=== PATIENT | female | born 1950 | race Caucasian/White ===

== ENCOUNTER → 2022-08-16 08:07 | Outpatient (CLI) | payer MEDICARE, SELFPAY ==
[2022-08-16 10:02] LABS: Influenza A - CEPHEID Flu A NEGATIVE (NEGATIVE); Influenza B - CEPHEID Flu B NEGATIVE (NEGATIVE); Respiratory Syncytial Virus Negative (Negative)
[2022-08-16 10:04] LABS: COVID-19 CEPHEID PCR (VTM/NP) Negative (Negative)
== END ==
PROVIDERS: Visit Provider Registered Nurse
DX: R05.9 Cough, unspecified (principal); R09.81 Nasal congestion
CPT/HCPCS: 0241U

== ENCOUNTER → 2022-12-26 09:21 | Outpatient (CLI) | payer OTHER, MEDICARE, SELFPAY ==
--- NOTE | 2022-12-26 | DI.RAD.S_ITS ---
PROCEDURE: XR CHEST 2V INDICATIONS: COUGH TECHNIQUE: 2 views of the chest were acquired. COMPARISON: None. FINDINGS: Surgical changes and devices: None. Lungs and pleura: No consolidation. No pleural effusions or pneumothorax. Mediastinum: Mediastinal contours are normal. Heart size is normal. Bones and chest wall: No suspicious bony abnormalities. Soft tissues appear unremarkable. IMPRESSION: No acute cardiopulmonary abnormality identified. Dictated by: Dustin Haddad M.D. on 12/26/2022 at 9:57 Approved by: Dustin Haddad M.D. on 12/26/2022 at 9:58
== END ==
PROVIDERS: PCP Physician Assistant; Referring Provider Physician Assistant; Visit Provider Physician Assistant
DX: R05.9 Cough, unspecified (principal)
CPT/HCPCS: 71046

== ENCOUNTER 2024-08-15 13:29 | Emergency (ER) | payer OTHER, SELFPAY ==
[2024-08-15] VITALS (13 sets, daily range): BP systolic 97–152; BP diastolic 64–85; PULSE 76–95; RESP 14–18; TEMP 36.8; O2SAT 97–99; BMI 30.7
--- NOTE | 2024-08-15 13:35 | DI.RAD.S_ITS ---
PROCEDURE: XR HIP W PEL IF DONE LT 2V INDICATIONS: fall TECHNIQUE: 2 views of the hip were acquired. COMPARISON: None. FINDINGS: Bones: No fractures or dislocations. No suspicious bony lesions. The visualized pelvic ring appears intact. Mild joint space narrowing. Femoral head maintains an appropriate contour Soft tissues: No suspicious soft tissue calcifications or masses. IMPRESSION: Mild bilateral hip osteoarthritis. No fracture. Approved by: Abelardo Jose M.D. on 08/15/2024 at 14:21
--- NOTE | 2024-08-15 13:35 | DI.CT.S_ITS ---
PROCEDURE: CT HEAD/BRAIN WO CON INDICATIONS: fall TECHNIQUE: Noncontrast 4.5 mm thick angled axial sections acquired from the foramen magnum to the vertex, with coronal and sagittal reformats. For radiation dose reduction, the following was used: automated exposure control, adjustment of mA and/or kV according to patient size. COMPARISON: None. FINDINGS: Image quality: Diagnostic. CSF spaces: Basal cisterns are patent. No extra-axial fluid collections. The ventricles are symmetric in size and shape. Brain: No intracranial bleeds or masses. There is cerebral volume loss for age, with resultant ventricular and sulcal prominence. There are periventricular and deep white matter chronic small vessel ischemic changes. There is intracranial internal carotid artery atherosclerosis. Skull and face: Calvarium and visualized facial bones appear intact, without suspicious lesions. Sinuses: Visualized sinuses and mastoids are clear. IMPRESSION: No acute intracranial pathology. Dictated by: Veto Buitrago M.D. on 08/15/2024 at 14:18 Approved by: Veto Buitrago M.D. on 08/15/2024 at 14:19
--- NOTE | 2024-08-15 13:35 | DI.RAD.S_ITS ---
PROCEDURE: XR SHOULDER LT MIN 2V INDICATIONS: fall TECHNIQUE: 3 views of the shoulder were acquired. COMPARISON: None. FINDINGS: Bones: Generalized decreased osseous mineralization noted. Comminuted proximal humeral fracture is nondisplaced. No dislocation Soft tissues: No suspicious soft tissue calcifications. IMPRESSION: Nondisplaced comminuted proximal humeral fracture Approved by: Abelardo Jose M.D. on 08/15/2024 at 14:26
--- NOTE | 2024-08-15 13:35 | DI.RAD.S_ITS ---
PROCEDURE: XR KNEE RT 3V INDICATIONS: fall TECHNIQUE: 3 views of the knee were acquired. COMPARISON: None. FINDINGS: Bones: No fractures or dislocations. No suspicious bony lesions. Moderate medial compartment and patellofemoral joint space narrowing. No joint effusion. Generalized decreased osseous mineralization noted. Soft tissues: No joint effusion. No suspicious soft tissue calcifications. IMPRESSION: Predominantly medial compartment osteoarthritis. No fracture or joint effusion. Approved by: Abelardo Jose M.D. on 08/15/2024 at 14:23
[2024-08-15] MEDS: ACETAMINOPHEN 325 MG TABLET 650 MG PO (15:30)
--- NOTE | 2024-08-15 16:50 | ED_ITS ---
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 She feels she was a little woozy does not completely remember the incident. She was helped off the ground onto a stretcher by the medics. She states she has been in her usual state of health and takes minimal medications prior to the fall. Related Data Home Medications Medication Instructions Recorded Confirmed furosemide [Lasix] PO 08/16/22 08/16/22 oxybutynin chloride PO 08/16/22 08/16/22 potassium citrate PO 08/16/22 08/16/22 Previous Rx's Medication Instructions Recorded hydrocodone 5 mg-acetaminophen 325 1 tab PO Q6-8H PRN pain #14 tabs 08/15/24 mg tablet Allergies Allergy/AdvReac Type Severity Reaction Status Date / Time Penicillins Allergy Mild Rash Verified 08/16/22 07:59 Review of Systems Review of Systems Narrative: Pertinent positive and negative findings as per HPI Patient History Social History Smoking Status: Never smoker Smoking Status: Never smoker Substance Use Type: does not use and marijuana Exam Initial Vital Signs Initial Vital Signs: Vital Signs Blood Pressure 152/85 H 08/15/24 13:33 General: Healthy appearing, minor contusion to the left forehead, GCS of 15 HEENT: Moist mucous membranes, normal sclera with reactive pupils, Neck: No midline tenderness to palpation Respiratory: Lungs are clear to auscultation, no wheezing no rales no rhonchi. Full and symmetrical air movement Cardiac: Regular rate and rhythm no murmurs no bruits Abdomen: Soft, nontender, good bowel tones, no flank pain Skin: Warm and dry, minor abrasions Neurologic: Grossly neurologically intact with no obvious asymmetries or abnormalities Extremities: Pain at the left shoulder, pain with manipulation of the pelvic ring. She is slightly tender with external rotation of the left hip but is able to rotate the hip. Abrasion to the right knee. Neurovascularly intact in both lower extremities and upper extremities Psych: Cooperative, appropriate insight and affect Course Orders Ordered: ED Orders 08/15/24 13:35 CT head/brain wo con Stat XR hip w pel if done LT 2V Stat XR knee RT 3V Stat XR shoulder LT min 2V Stat Discontinued Medications Acetaminophen (Acetaminophen 325 Mg Tablet) 650 mg PO NOW ONE Stop: 08/15/24 15:27 Last Admin: 08/15/24 15:30 Dose: 650 mg Documented By: JEWELL Vital Signs Vital signs: Vital Signs - 8 hr 08/15/24 13:33 08/15/24 13:34 08/15/24 13:40 Temperature 98.2 F Pulse Rate 88 89 Respiratory Rate 14 Blood Pressure 152/85 H 152/85 H Pulse Oximetry 99 99 Oxygen Delivery Method Room Air 08/15/24 14:17 08/15/24 14:18 08/15/24 14:18 Temperature Pulse Rate 92 H 92 H Respiratory Rate Blood Pressure 142/67 H Pulse Oximetry 99 99 Oxygen Delivery Method 08/15/24 14:30 08/15/24 14:31 08/15/24 14:31 Temperature Pulse Rate 90 90 Respiratory Rate Blood Pressure 131/66 Pulse Oximetry 99 98 Oxygen Delivery Method 08/15/24 15:00 08/15/24 15:00 08/15/24 15:30 Temperature Pulse Rate 91 H 95 H Respiratory Rate Blood Pressure 136/67 Pulse Oximetry 99 99 Oxygen Delivery Method 08/15/24 15:30 Temperature Pulse Rate Respiratory Rate Blood Pressure 138/78 Pulse Oximetry Oxygen Delivery Method MDM - Fall MDM Narrative Medical decision making narrative: CC: Fall, got entangled with a 6-year-old Data collected from: patient Differential considered: Contusions, abrasions, fractures in the shoulder cranium, intracranial bleed, pelvic fracture hip fracture the injury Exam documented above, pertinent findings include: Patient is alert and appropriate with a GCS of 15 on time of arrival in the emergency department. Minor abrasion above the left brow, Imaging studies independently reviewed: CT scan of the head shows no acute pathology X-ray of the hip and pelvis show no acute abnormalities mild bilateral osteoarthritis X-ray of the right knee does not show any acute pathology X-ray of the shoulder shows a nondisplaced comminuted proximal humeral head fracture Treatments: Tylenol, hydrocodone, left arm is placed in a sling Procedure: Sling is placed to support the left arm for her proximal humerus fracture. She is neurovascularly intact pre and post treatment. 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 We x-rayed pelvis hips and knees showing minor arthritis but no other bony injuries. She is feeling significantly better after Tylenol. Understands need for follow up. At this point there was no indication for additional imaging, blood work or hospitalization and she is safe for discharge Discharge Plan Departure Patient Disposition: Home Clinical Impression: Fall Qualifiers: Encounter type: initial encounter Qualified Code(s): W19.XXXA - Unspecified fall, initial encounter Concussion without loss of consciousness Qualifiers: Encounter type: initial encounter Qualified Code(s): S06.0X0A - Concussion without loss of consciousness, initial encounter Abrasion of forehead Qualifiers: Encounter type: initial encounter Qualified Code(s): S00.81XA - Abrasion of other part of head, initial encounter Fracture of proximal end of humerus Qualifiers: Encounter type: initial encounter Fracture type: closed Fracture morphology: unspecified fracture morphology Laterality: left Qualified Code(s): S42.202A - Unspecified fracture of upper end of left humerus, initial encounter for closed fracture Contusion of knee, right Qualifiers: Encounter type: initial encounter Qualified Code(s): S80.01XA - Contusion of right knee, initial encounter Instructions: DI for Concussion, Humeral Shaft Fracture Activity Restrictions/Additional Instructions: Thank you for coming in today With a fussiness in the confusion around the fall on the playground today, you do have a concussion. We did a CT scan of your brain shows no bleeding and no skull or facial fractures. You may be more fatigued, more forgetful and a bit more nauseated over the next couple of days but this should improve You broke the upper part of your left arm. Treatment for this is using a sling for pain and comfort control. The upper arm typically is going to heal by itself without needing any surgery. We would recommend Tylenol for median pain and severe pain you can use 1 hydrocodone with Tylenol. This is a narcotic and can cause constipation. Please use it with care. These fractures can often be quite painful so do feel that it is safe to use the hydrocodone. We x-rayed your pelvis your hips and your knee. No other fractures were found You are going to be more sore tomorrow. I would recommend not going back to work until you have talked with the orthopedic surgeon. You do need to call [facility] for a follow up appointment. Please explain that you fell, you were seen in the ER and explain that you have a left proximal humeral fracture and need to be seen for definitive treatment. They will schedule an appointment for you If you find that you are having new symptoms or additional pain that can not be treated at home, please do feel free to return to the ER Prescriptions: New hydrocodone-acetaminophen 5-325 mg tablet 1 tab PO Q6-8H PRN (Reason: pain) Qty: 14 0RF No Action furosemide [Lasix] PO potassium citrate PO oxybutynin chloride PO Referrals: Effie Conti PA-C [Primary Care Provider] - Stand Alone Forms: Patient Portal/API
[2024-08-15] MEDS: HYDROCODONE/ACET 5/325 TABLET 1 TAB PO (17:28)
== END 2024-08-15 17:47 | disposition home or self-care (01) ==
PROVIDERS: Emergency Provider Emergency Medicine; PCP Physician Assistant
DX: S06.0X0A Concussion without loss of consciousness, initial encounter (principal); S00.81XA Abrasion of other part of head, initial encounter; S42.202A Unspecified fracture of upper end of left humerus, initial encounter for closed fracture; S80.01XA Contusion of right knee, initial encounter; R10.2 Pelvic and perineal pain; W18.30XA Fall on same level, unspecified, initial encounter
CPT/HCPCS: 70450; 73030; 73502; 73562; 99284

== ENCOUNTER → 2024-09-16 10:24 | Outpatient (CLI) | payer OTHER, SELFPAY ==
--- NOTE | 2024-09-16 10:58 | EKG_ITS ---
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
[2024-09-16 11:57] LABS: Add Manual Diff / Slide Review NO; Basophils Absolute Auto 0 /uL (0-100); Basophils Percent Auto 0.5 % (0-2); Eosinophils Absolute Auto 100 /uL (0-450); Eosinophils Percent Auto 1.3 % (2-4); Hematocrit 43.5 % (36-46); Hemoglobin 14.6 g/dL (12.0-16.0); Lymphocytes Absolute Auto 3400 /uL (1100-4500); Lymphocytes Percent Auto 38.1 % (25-40); Mean Corpuscular HGB Conc 33.7 % (30-36); Mean Corpuscular Hemoglobin 29.7 PG (26-34); Mean Corpuscular Volume 88.2 fL (80-100); Monocytes Absolute Auto 600 /uL (0-900); Monocytes Percent Auto 6.2 % (3-14); Neutrophils Absolute Auto 4900 /uL (1500-7000); Neutrophils Percent Auto 53.9 % (50-75); Platelet Count 226 X10^3/uL (150-400); Red Blood Cell Count 4.93 X10^6/uL (4.0-5.2); Red Cell Distribution Width 13.5 % (11.6-14.8)
[2024-09-16 12:01] LABS: Hemoglobin A1C% w Est Avg Glu 6.9 % (4.0-6.0)
[2024-09-16 12:28] LABS: BUN Creatinine Ratio 23.5 (6-22); Blood Urea Nitrogen 20 mg/dL (7-17); Calcium 9.9 mg/dL (8.4-10.2); Carbon Dioxide 29 mmol/L (22-32); Chloride 101 mmol/L (98-107); Estimated Glomerular Filt Rate > 60 mL/min (>60); Glucose 120 mg/dL (80-110); HEMOLYSIS < 15 (0-50); Potassium 4.1 mmol/L (3.4-5.1); Sodium 138 mmol/L (137-145)
== END ==
PROVIDERS: PCP Physician Assistant; Referring Provider Orthopaedic Surgery Foot and Ankle Surgery; Visit Provider Orthopaedic Surgery Foot and Ankle Surgery
DX: Z01.818 Encounter for other preprocedural examination (principal); Z01.812 Encounter for preprocedural laboratory examination; R73.9 Hyperglycemia, unspecified
CPT/HCPCS: 36415; 80048; 83036; 85025; 93005

== ENCOUNTER → 2025-05-16 11:42 | Outpatient (CLI) | payer OTHER, SELFPAY ==
--- NOTE | 2025-05-16 11:44 | DI.MRI.S_ITS ---
PROCEDURE: MR SHOULDER LT WO CON INDICATIONS: fracture of left humerus TECHNIQUE: Noncontrast oblique coronal T2 fast spin echo with fat saturation, oblique sagittal T1 spin echo and T2 fast spin echo with fat saturation, axial T1 spin echo and T2 fast spin echo with fat saturation through the shoulder. COMPARISON: [facility], CR, XR SHOULDER LT MIN 2V, 08/15/2024, 13:40. [facility] [place], CR, XR SHOULDER 2+ VIEWS LEFT, 01/10/2025, 15:27. FINDINGS: Image quality: Excellent. Rotator cuff: Small high-grade partial bursal sided tear of the supraspinatus tendon at the distal insertion measuring approximately 5 mm in anterior-posterior dimension without significant tendon retraction. Moderate to severe supraspinatus and infraspinatus tendinosis. Teres minor tendon is intact. At least moderate infraspinatus tendinosis with suspected focal low-grade intrasubstance tearing at the distal insertion. No disproportionate atrophy of the rotator cuff musculature. Bones and bursae: Healing fracture of the proximal humeral head and neck is seen with mild residual deformity at the greater tuberosity and surgical neck of the humerus. There is small residual incomplete fracture line with [id number] signal although peripheral osseous bridging is seen. Moderate partial-thickness cartilage irregularity in the glenohumeral joint with small marginal osteophytes. [id number] degenerative changes at the acromioclavicular joint. Small amount of fluid is seen in the subacromial/subdeltoid bursa. Small glenohumeral effusion. Capsule and soft tissues: Mild diffuse labral degeneration. Normal variant sublabral sulcus at the superior labrum versus focal tearing with smooth margins. Proximal biceps long head tendon demonstrates moderate tendinosis. There is partial effacement of fat signal in the rotator interval. Mild thickening and edema along the inferior glenohumeral ligament may be related to prior sprain. IMPRESSION: 1. Healing fracture of the proximal humeral head and neck with mild residual deformity. The majority of the fracture is healed, although a small incomplete residual linear fracture line is seen at the surgical neck with mild surrounding osseous edema. 2. Focal high-grade partial bursal sided tearing of the supraspinatus tendon at the distal insertion measuring 5 mm in anterior-posterior dimension superimposed on moderate to severe supraspinatus and infraspinatus tendinosis. 3. Moderate subscapularis tendinosis and suspected focal low-grade partial intrasubstance tearing at the distal insertion. 4. Moderate proximal biceps long head tendinosis. 5. Mild labral degeneration. Normal variant sublabral sulcus versus nondisplaced tearing of the superior labrum. 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 Small glenohumeral effusion. 6. [id number] acromioclavicular joint osteoarthrosis. Small subacromial/subdeltoid bursal effusion or mild bursitis. 7. Mild thickening of the inferior glenohumeral ligament and trace adjacent edema are likely secondary to prior capsular sprain. Approved by: Himanshu Guevara M.D. on 05/16/2025 at 20:00
== END ==
LOC: MRI 11:43
PROVIDERS: PCP Physician Assistant; Referring Provider Preventive Medicine Occupational Medicine; Visit Provider Preventive Medicine Occupational Medicine
DX: S42.202A Unspecified fracture of upper end of left humerus, initial encounter for closed fracture (principal); S46.012A Strain of muscle(s) and tendon(s) of the rotator cuff of left shoulder, initial encounter; M19.012 Primary osteoarthritis, left shoulder; M94.212 Chondromalacia, left shoulder; M25.412 Effusion, left shoulder; X58.XXXA Exposure to other specified factors, initial encounter
CPT/HCPCS: 73221